=== PATIENT | female | born 1930 | race Hispanic/Latino ===

== ENCOUNTER → 2019-08-07 | Outpatient (CLI) | payer MEDICARE, OTHER | END | disposition home or self-care (01) | LOC: OIH 11:19 | PROVIDERS: ATTEND Internal Medicine | DX: M20.11 Hallux valgus (acquired), right foot (principal); M20.12 Hallux valgus (acquired), left foot; M77.31 Calcaneal spur, right foot; M06.4 Inflammatory polyarthropathy; M85.89 Other specified disorders of bone density and structure, multiple sites | CPT/HCPCS: 73130; 73630 ==

== ENCOUNTER → 2019-11-25 | Outpatient (CLI) | payer MEDICARE | END | disposition home or self-care (01) | LOC: RAH 17:05 | PROVIDERS: ATTEND Internal Medicine | DX: J20.9 Acute bronchitis, unspecified (principal); M47.815 Spondylosis without myelopathy or radiculopathy, thoracolumbar region | CPT/HCPCS: 71046 ==